=== PATIENT | female | born 1955 | race Caucasian/White ===

== ENCOUNTER 2017-06-19 08:55 | Emergency (ER) | payer MEDICARE, MEDICAID ==
[~2017-06-19] VITALS: Ht 157.5 cm; Wt 91.0 kg
[~2017-06-19 08:55] MED LIST: ALBU6.7H INH; ASPI-611 PO; ATOR40TA71 PO; CHOL50004 PO; DIPH25CA83 PO; LANS30CA37 PO; LEVO25TA7 PO; MESA500C PO; NITR0.4T SL; SPIR50TA3 PO
[2017-06-19 09:00] VITALS: BP 193/109
[2017-06-19] MEDS ORDERED: METH-360 PO (10:53)
[2017-06-19] MEDS ORDERED: ketorolac trometh inj. 60 MG/2 ML VIAL IM ONE (10:55)
== END 2017-06-19 11:18 | disposition home or self-care (01) ==
LOC: ER 08:56
DX: M54.41 Lumbago with sciatica, right side (principal); G43.909 Migraine, unspecified, not intractable, without status migrainosus; I25.10 Atherosclerotic heart disease of native coronary artery without angina pectoris; I11.0 Hypertensive heart disease with heart failure; I50.9 Heart failure, unspecified; K21.9 Gastro-esophageal reflux disease without esophagitis; G89.29 Other chronic pain; Z90.49 Acquired absence of other specified parts of digestive tract; Z95.1 Presence of aortocoronary bypass graft; Z98.890 Other specified postprocedural states; Z86.73 Personal history of transient ischemic attack (TIA), and cerebral infarction without residual deficits; Z88.5 Allergy status to narcotic agent; Z88.8 Allergy status to other drugs, medicaments and biological substances; Z91.040 Latex allergy status; Z79.82 Long term (current) use of aspirin; Z79.899 Other long term (current) drug therapy
CPT/HCPCS: 96372; 99283; J1885

== ENCOUNTER 2023-12-03 10:25 | Day surgery (SDC) | payer BC, MEDICAID ==
[2023-12-01 10:57] LABS: BASOPHILS % (AUTO) 0.7 % (0-1); BILIRUBIN,URINE NEGATIVE (Neg); CLARITY,URINE CLEAR (Clear); COLOR,URINE STRAW (Yellow); EOSINOPHILS # (AUTO) 0.1 X10'3 (0-0.9); EOSINOPHILS % (AUTO) 1.4 % (0-6); GLUCOSE, URINE NEGATIVE (Neg); KETONES,URINE NEGATIVE (Neg); LEUKOCYTE ESTERASE ,URINE TRACE (Neg); LYMPHOCYTES # (AUTO) 1.8 X10'3 (1.1-4.8); LYMPHOCYTES % (AUTO) 34.2 % (21-51); MEAN CORPUSCULAR HEMOGLOBIN 30.4 PG (27.0-31.0); MEAN CORPUSCULAR HGB CONC 32.8 g/dL (33.0-36.5); MEAN CORPUSCULAR VOLUME 92.8 FL (78-98); MEAN PLATELET VOLUME 7.4 FL (7.4-10.4); MONOCYTES # (AUTO) 0.4 X10'3 (0-0.9); MONOCYTES % (AUTO) 7.6 % (2-12); NEUTROPHILS # (AUTO) 2.9 X10'3 (1.8-7.7); NEUTROPHILS % (AUTO) 56.1 % (42-75); NITRITES, URINE NEGATIVE (Neg); OCCULT BLOOD,URINE TRACE-INTACT (Neg); PRE OP HEMATOCRIT 41.8 % (35.0-45.0); PRE OP HEMOGLOBIN 13.7 g/dL (12.0-16.0); PRE OP PLATELET COUNT 242 X10'3 (140-440); PRE OP WHITE BLOOD COUNT 5.2 10'3 (4.8-10.8); PROTEIN,URINE NEGATIVE (Neg); RED CELL DISTRIBUTION WIDTH 13.3 % (11.5-14.5); UROBILINOGEN,URINE 0.2 E.U/dL (0.2-1.0)
[2023-12-01 11:13] LABS: UA COLLECTION TYPE NON-SPECIFIED
[2023-12-01 11:16] LABS: ALBUMIN 3.6 G/DL (3.4-5.0); ALBUMIN/GLOBULIN RATIO 0.9 (1.1-1.5); ALKALINE PHOSPHATASE 69 IU/L (46-116); BLOOD UREA NITROGEN 19 MG/DL (7-18); BUN/CREATININE RATIO 23.5 (10.0-20.0); CALCIUM 8.8 MG/DL (8.5-10.1); CHLORIDE 107 MMOL/L (99-107); CREATININE 0.81 MG/DL (0.40-0.90); PRE OP ALT 26 U/L (30-65); PRE OP ANION GAP 8 (8-16); PRE OP AST 17 U/L (10-37); PRE OP BILIRUB, TOTAL 0.4 MG/DL (0.0-1.0); PRE OP GLUCOSE 89 MG/DL (70-104); PRE OP POTASSIUM 3.9 MMOL/L (3.4-5.1); PRE OP SODIUM 142 MMOL/L (135-145); TOTAL CARBON DIOXIDE 27.4 MMOL/L (24-32); TOTAL PROTEIN 7.5 G/DL (6.4-8.2); eGFR 71 ML/MIN
[2023-12-01 11:19] LABS: BACTERIA,URINE 1+ /HPF (Neg); RBC,URINE 0-2 /HPF (0-2); SQUAMOUS EPITHELIAL CELL,UR FEW /LPF (FEW); WBC,URINE 0-4 /HPF (0-4)
[2023-12-03] VITALS (12 sets, daily range): BP systolic 172–196; BP diastolic 92–105; PULSE 69–80; RESP 9–18; TEMP 97.9; O2SAT 95–100
[~2023-12-03] VITALS: Ht 157.5 cm; Wt 89.2 kg
[2023-12-03] MEDS: cefazolin 2gm/D5W 100mL 100 ML IV ONE (05:30)
[2023-12-03] MEDS: ringers solution, lacted 1,000 ML IV SCH ×2 (05:30→15:23)
[~2023-12-03 10:25] MED LIST changes: +ACET-1025 PO; -ALBU6.7H INH; -ASPI-611 PO; -ATOR40TA71 PO; -CHOL50004 PO; +D MANNOSE PO; +DICL100G31 TOP; -SPIR50TA3 PO
[2023-12-03] MEDS: famotidine 20mg tablet PO ONE (12:02)
[2023-12-03] MEDS ORDERED: BUPIVAcaine 2.5mg/ml inj 50ml vial (contains preservative) ONE (12:29)
[2023-12-03 12:35] LABS: PRE OP PARTIAL THROMB. TIME 21 SECONDS (22-32); PROTHROMBIN TIME 10.6 SECONDS (9.0-12.0)
[2023-12-03] MEDS ORDERED: fentaNYL/PF 50MCG/1 ML 2ML syringe ONE (13:02)
[2023-12-03] MEDS ORDERED: midazolam 1 mg/ML 2ml injection ONE (13:02)
[2023-12-03] MEDS ORDERED: propofol inj 20 ML IV ONE (13:02)
[2023-12-03] MEDS ORDERED: rocuronium 10mg/ml inj IV ONE (13:06)
[2023-12-03] MEDS: acetaminophen 1,000mg/100ml IV 100 ML IV ONE (13:20)
[2023-12-03] MEDS ORDERED: ondansetron/PF 4mg/2ml inj IV PRN ×2 (13:20)
[2023-12-03] MEDS ORDERED: meperidine/PF 25mg/ml syringe IV PRN ×2 (13:20)
[2023-12-03] MEDS ORDERED: HYDROmorphone/PF 0.2 MG/ML SYRINGE IV PRN ×2 (13:20)
[2023-12-03] MEDS ORDERED: proCHLORperazine 10 MG/2 ml inj IV PRN (13:20)
[2023-12-03] MEDS ORDERED: sugammadex 200mg/2ml injection IV ONE (14:22)
[2023-12-03] MEDS ORDERED: acetaminophen 1,000mg/100ml IV 100 ML IV ONE (14:34)
[2023-12-03] MEDS: meperidine/PF 25mg/ml syringe IV PRN (15:17)
== END 2023-12-03 16:08 | disposition home or self-care (01) ==
LOC: PAS 10:25
PROVIDERS: ATTEND Surgery
DX: T84.84XA Pain due to internal orthopedic prosthetic devices, implants and grafts, initial encounter (principal); I11.0 Hypertensive heart disease with heart failure; I50.9 Heart failure, unspecified; E11.9 Type 2 diabetes mellitus without complications; I25.10 Atherosclerotic heart disease of native coronary artery without angina pectoris; E78.5 Hyperlipidemia, unspecified; E03.9 Hypothyroidism, unspecified; G43.909 Migraine, unspecified, not intractable, without status migrainosus; E66.9 Obesity, unspecified; K21.9 Gastro-esophageal reflux disease without esophagitis; G47.33 Obstructive sleep apnea (adult) (pediatric); M19.90 Unspecified osteoarthritis, unspecified site; Z87.440 Personal history of urinary (tract) infections; Z79.890 Hormone replacement therapy; Z79.899 Other long term (current) drug therapy; Z90.49 Acquired absence of other specified parts of digestive tract; Z90.710 Acquired absence of both cervix and uterus; Z95.1 Presence of aortocoronary bypass graft; Z98.890 Other specified postprocedural states; Z68.36 Body mass index [BMI] 36.0-36.9, adult; Z91.040 Latex allergy status; Z88.2 Allergy status to sulfonamides; Z88.5 Allergy status to narcotic agent; Z91.041 Radiographic dye allergy status; Z88.8 Allergy status to other drugs, medicaments and biological substances; Y83.8 Other surgical procedures as the cause of abnormal reaction of the patient, or of later complication, without mention of misadventure at the time of the procedure; Y92.89 Other specified places as the place of occurrence of the external cause
CPT/HCPCS: 20680; 36415; 71045; 80053; 81001; 82948; 85025; 85610; 85730; 86885; 86900; 86901; 87077; 87088; 87186; J0131; J0690; J2175; J2250; J2704; J3010; J3490; J7030; J7050; J7120; Z7506; Z7512; A4618; A6449; A7000

== ENCOUNTER 2024-12-14 12:04 | Emergency (ER) | payer BC, MEDICAID ==
[~2024-12-14] VITALS: Ht 157.5 cm; Wt 94.0 kg
[~2024-12-14 12:04] MED LIST changes: -DICL100G31 TOP; +[UNRECOGNIZED DRUG - CODE] TOP
[2024-12-14 12:10] VITALS: TEMP 97.6
[2024-12-14 12:34] LABS: MEAN PLATELET VOLUME 7.6 FL (7.4-10.4); RED CELL DISTRIBUTION WIDTH 14.0 % (11.5-14.5)
--- NOTE | 2024-12-14 12:48 | ELECTROCARDIOGRAPH REPORT ---
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
[2024-12-14 12:49] LABS: CREATININE 0.89 MG/DL (0.40-0.90); PRO BRAIN NATRIURETIC PEPTIDE 267 PG/ML (0-125); TOTAL CARBON DIOXIDE 27.7 MMOL/L (24-32); eCRCL 48 ML/MIN; eGFR 63 ML/MIN
--- NOTE | 2024-12-14 12:58 | Physician Documentation ---
History of Present Illness General Chief Complaint: Hypertension Stated Complaint: DIZZINESS/ABDOMINAL PAIN Time Seen by MD: 12:55 OK to notify your PCP?: No Primary Medical Doctor: DR ARNALDO LOPEZ Source: patient, family, RN notes reviewed Mode of Arrival: POV Exam Limitations: no limitations History of Present Illness Initial Comments 69 year old female, with history of CAD, CABG, to the ED from Dr. Keenan's office due to concerns of high blood pressure in the 200s. The patient reports generalized headache and fuzzy vision since yesterday morning. She denies any acute chest pain, shortness of breath, or recent illness. The patient reports she usually does not have high blood pressure but previously was taking metoprolol many years ago, however she stopped this medication because of lip and tongue swelling. She does not take any hypertensive medications now. Medication Reconciliation Allergies: Coded Allergies: Sulfa (Sulfonamide Antibiotics) (Verified Allergy, Unknown, 12/14/24) adhesive tape (Unverified Allergy, Unknown, 12/01/23) codeine (Unverified Allergy, Unknown, ITCHY, HIVES, "SPACEY", 12/14/24) hydrocodone (Verified Allergy, Unknown, 12/14/24) iodine (Unverified Allergy, Unknown, SWELLING, CAN'T URINATE, 12/14/24) lansoprazole (Unverified Allergy, Unknown, 12/14/24) latex (Unverified Allergy, Unknown, RASH AND ITCH, 06/19/17) morphine (Unverified Allergy, Unknown, 12/01/23) ramipril (Unverified Allergy, Unknown, TONGUE SWELLS/CRACKS, 06/19/17) sulfadiazine (Unverified Allergy, Unknown, 12/01/23) Uncoded Allergies: POISON [place] (Allergy, Unknown, 12/02/23) Scheduled Carvedilol* (Coreg*), 1 TAB PO Q12H Diphenhydramine Hcl (Benadryl), 3 CAP PO HS, (Reported) Lansoprazole (Prevacid), 1 CAP PO BID, (Reported) Levothyroxine Sodium (Levothyroxine Sodium), 25 MCG PO DAILY, (Reported) Mesalamine (Pentasa), 2 TAB PO BID, (Reported) Pravastatin Sodium (Pravastatin Sodium), 1 TAB PO DAILY Telmisartan (Telmisartan), 1 TAB PO DAILY [D Mannose], 1,500 MG PO DAILY, (Reported) Scheduled PRN Acetaminophen (Tylenol Extra Strength), 1 TAB PO TID PRN PRN for pain or fever, (Reported) Diclofenac Sodium (Diclofenac Sodium), 1 APPLIC TOP TID PRN for pain, (Reported) Nitroglycerin (Nitrostat), 0.4 MG SL PRNCP PRN for chest pain, (Reported) Past Medical History Past Medical History: CVA/TIA/Stroke, Migraine, Angina, Coronary Artery Disease, Congestive Heart Failure, Hypertension, Sleep Apnea, *GI/HEPATOBILIARY*, Diverticulitis, GERD, Peptic Ulcer Disease, Chronic Pain, Anxiety, Depression Past Surgical History: appendectomy, coronary bypass surgery, orthopedic surgeries Drug Use: none Lives with: Family Lives In: Home Review of Systems All Other Systems at this time: Reviewed and Negative ROS headache as well as other positive symptoms as stated above in the HPI, otherwise all systems are reviewed and negative. Physical Exam Physical Exam Vital Signs: RN Vital Signs have been reviewed: Yes, Temperature: 97.6, Source: Temporal, Heart Rate: 85, Respiratory Rate: 18, BP: 288/153, Pulse Oximetry: 98, Weight: 94.000 Pulse Oximetry Reflects: adequate oxygenation Physical Exam VITALS: Reviewed and as above. GENERAL: Alert, no apparent distress. HEENT: Normocephalic, atraumatic, PERRL, EOMI, dry mucosa RESPIRATORY: Lungs clear, normal breath sounds, no respiratory distress. 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 1335: Case discussed with Dr. Espinal, who recommends the prescribed medications after controlling her blood pressure in the ER. 1523: Blood pressure is now 153/87 Results/Orders Reviewed/noted all lab results: Yes Results/Orders Medications Received in ER Medications (Trade) Dose Ordered Sig/Elmer Route PRN Reason Start Time Stop Time Status Last Admin Dose Admin (Trandate tablet) 300 mg ONCE PO 12/14/24 13:20 12/14/24 14:15 300 MG Vital Signs 12/14/24 12/14/24 12/14/24 12/14/24 12:10 13:15 14:20 15:23 Temp 97.6 Pulse 85 75 67 Resp 18 15 20 17 B/P (MAP) 288/153 212/103 (139) 153/87 (109) Pulse Ox 98 96 94 O2 Flow Rate 0 0 Laboratory Tests Test 12/14/24 12:18 12/14/24 14:20 White Blood Count 4.9 Red Blood Count 4.85 Hemoglobin 14.4 Hematocrit 43.2 Mean Corpuscular Volume 89.0 Mean Corpuscular Hemoglobin 29.6 Mean Corpuscular Hemoglobin Concent 33.3 Red Cell Distribution Width 14.0 Platelet Count 252 Mean Platelet Volume 7.6 Neutrophils (%) (Auto) 56.9 Lymphocytes (%) (Auto) 33.4 Monocytes (%) (Auto) 7.0 Eosinophils (%) (Auto) 1.9 Basophils (%) (Auto) 0.8 Neutrophils # (Auto) 2.8 Lymphocytes # (Auto) 1.6 Monocytes # (Auto) 0.3 Eosinophils # (Auto) 0.1 Basophils # (Auto) 0.0 CBC Comment Sodium Level 140 Potassium Level 4.7 Chloride Level 105 Carbon Dioxide Level 27.7 Anion Gap 7 L Blood Urea Nitrogen 19 H Creatinine 0.89 Estimated GFR/1.73 m2 63 BUN/Creatinine Ratio 21.3 H Glucose Level 95 Calcium Level 8.8 Troponin I High Sensitivity 8 8 Pro-B-Type Natriuretic Peptide 267 H Albumin 3.7 Chemistry Comments Troponin I High Sens Percent Delta 0 Troponin I Hi Sens Absolute Change 0 EKG/XRAY/CT/US/VASC/MRI EKG : Additional Comment 1245: EKG interpreted by myself to show NSR at a rate of 80bpm. Left axis, low voltages. Chest X-Ray : Additional Comments CHEST RADIOGRAPH Indication: CP Technique: Single frontal view of the chest was obtained Comparison: DI CHEST,SINGLE VIEW on DOS: 12/03/23 FINDINGS: Lines and Tubes: None Lungs: No focal consolidation. Pleura: No effusion. No pneumothorax. Cardiomediastinal contours: Unremarkable Bones: Median sternotomy. IMPRESSION: No acute cardiopulmonary disease. Reviewed by myself. Medical Decision Making Additional information obtaine: old records (Last seen in 2018 for back pain and sciatica) Departure Time of Disposition: 15:19 Disposition: 01 HOME / SELF CARE / HOMELESS Impression: Primary Impression: Hypertension Qualified Codes: I10 - Essential (primary) hypertension Condition: Stable Discharge Instructions: Hypertension, Adult, [id number] Additional Instructions: Take new medications as prescribed. Follow up with Dr. Keenan's office. Return to the ER for new or worsening symptoms or other concerns. Prescriptions Pravastatin Sodium (Pravastatin Sodium) 20 Mg Tablet 1 TAB PO DAILY for 30 Days, #30 TAB 0 Refills Prov: ODALYS CRUZ MD 12/14/24 Carvedilol* (Coreg*) 12.5 Mg Tablet 1 TAB PO Q12H for 30 Days, #60 TAB Prov: ODALYS CRUZ MD 12/14/24 Telmisartan (Telmisartan) 40 Mg Tablet 1 TAB PO DAILY for 30 Days, #30 TAB 0 Refills Prov: ODALYS CRUZ MD 12/14/24 Education Educated: Patient Educated regarding: diagnosis, treatment, need for follow up Signature Scribe Signature: Scribed for Odalys Cruz MD by Zeus Charles . 12/14/24 13:23 ODALYS CRUZ MD Dec 14, 2024 12:57 ZEUS GALINDO Dec 14, 2024 13:30
--- NOTE | 2024-12-14 13:19 | RADIOLOGY REPORT ---
CHEST RADIOGRAPH Indication: CP Technique: Single frontal view of the chest was obtained Comparison: DI CHEST,SINGLE VIEW on DOS: 12/03/23 FINDINGS: Lines and Tubes: None Lungs: No focal consolidation. Pleura: No effusion. No pneumothorax. Cardiomediastinal contours: Unremarkable Bones: Median sternotomy. IMPRESSION: No acute cardiopulmonary disease.
[2024-12-14] MEDS ORDERED: CARV-50 PO (15:22)
[2024-12-14] MEDS ORDERED: TELM40TA8 PO (15:22)
[2024-12-14] MEDS ORDERED: PRAV20TA17 PO (15:22)
[2024-12-14 15:31] VITALS: BP 144/83; PULSE 79; RESP 18; O2SAT 99
== END 2024-12-14 15:35 | disposition home or self-care (01) ==
LOC: ER 12:05
DX: I11.0 Hypertensive heart disease with heart failure (principal); I50.9 Heart failure, unspecified; G89.29 Other chronic pain; G47.30 Sleep apnea, unspecified; I25.10 Atherosclerotic heart disease of native coronary artery without angina pectoris; G43.909 Migraine, unspecified, not intractable, without status migrainosus; F41.9 Anxiety disorder, unspecified; F32.A Depression, unspecified; K21.9 Gastro-esophageal reflux disease without esophagitis; Z86.73 Personal history of transient ischemic attack (TIA), and cerebral infarction without residual deficits; Z88.2 Allergy status to sulfonamides; Z88.5 Allergy status to narcotic agent; Z91.048 Other nonmedicinal substance allergy status; Z88.8 Allergy status to other drugs, medicaments and biological substances; Z90.49 Acquired absence of other specified parts of digestive tract; Z87.11 Personal history of peptic ulcer disease; Z95.1 Presence of aortocoronary bypass graft; Z79.899 Other long term (current) drug therapy; Z98.890 Other specified postprocedural states
CPT/HCPCS: 36415; 71045; 80048; 83880; 84484; 85025; 93005; 99285